=== PATIENT | female | born 1990 | race Caucasian/White ===

== ENCOUNTER → 2016-04-25 | Outpatient (CLI) | payer BC | LOC: RAD 12:47 | PROVIDERS: ATTEND Obstetrics & Gynecology | DX: N97.9 Female infertility, unspecified (principal) | CPT/HCPCS: 58340; 74740 ==

== ENCOUNTER 2016-09-05 19:47 | Emergency (ER) | payer BC, MEDICAID | END 2016-09-05 21:47 | disposition left against medical advice (07) | LOC: ER 19:47 | DX: Z53.21 Procedure and treatment not carried out due to patient leaving prior to being seen by health care provider (principal) ==

== ENCOUNTER → 2016-12-16 | Outpatient (CLI) | payer MEDICAID | LOC: OD 15:27 | PROVIDERS: ATTEND Advanced Practice Midwife | DX: N91.1 Secondary amenorrhea (principal) | CPT/HCPCS: 36415; 84702 ==

== ENCOUNTER → 2016-12-18 | Outpatient (CLI) | payer MEDICAID | LOC: LAB 15:29 | PROVIDERS: ATTEND Advanced Practice Midwife | DX: N91.1 Secondary amenorrhea (principal) | CPT/HCPCS: 36415; 84702 ==

== ENCOUNTER 2017-03-10 18:13 | Emergency (ER) | payer MEDICAID ==
--- NOTE | 2017-03-10 19:23 | ER Document Report ---
ED Medical Screen (RME) - General Chief Complaint: Palpitations Stated Complaint: ABDOMINAL PAIN Time Seen by Provider: 03/10/17 19:20 Notes: Patient says that about 2 PM today, she was sitting on her couch and suddenly felt her heart racing. She has never had this happen before. Has not felt badly or ill before today. Patient is 16 weeks with no problems with the . Has not had any nausea or vomiting or diarrhea. No UTI symptoms. No fever. No history of thyroid dysfunction. Patient's only medication is vitamin. TRAVEL OUTSIDE OF THE [place] IN LAST 30 DAYS: No - Related Data Allergies/Adverse Reactions: No Known Allergies Allergy (Verified 03/10/17 18:17) Past Medical History - Social History Chew tobacco use (# tins/day): No Frequency of alcohol use: None Drug Abuse: None Family history: DM - Past Medical History Cardiac Medical History: Reports: Hx Hypercholesterolemia Renal/ Medical History: Denies: Hx Peritoneal Dialysis Past Surgical History: Reports: Hx Section - x 1 - Immunizations Immunizations up to date: Yes Hx Diphtheria, Pertussis, Tetanus Vaccination: Yes Physical Exam - Vital signs Vitals: Temp Pulse Resp BP Pulse Ox 98.1 F 120 H 20 142/88 H 98 03/10/17 18:17 03/10/17 18:17 03/10/17 18:17 03/10/17 18:17 03/10/17 18:17 Course - Vital Signs Vital signs: Temp Pulse Resp BP Pulse Ox 98.1 F 120 H 20 142/88 H 98 03/10/17 18:17 03/10/17 18:17 03/10/17 18:17 03/10/17 18:17 03/10/17 18:17
[2017-03-10 19:48] LABS: ABSOLUTE EOSINOPHILS # (AUTO) 0.1 10^3/uL (0.0-0.6); ABSOLUTE LYMPHOCYTES (AUTO) 2.5 10^3/uL (0.5-4.7); ABSOLUTE MONOCYTES (AUTO) 0.5 10^3/uL (0.1-1.4); BASOPHILS % (AUTO) 0.5 % (0-2); EOSINOPHILS % (AUTO) 1.4 % (0-6); HEMATOCRIT 36.6 % (36.0-47.0); HEMOGLOBIN 12.6 g/dL (12.0-15.5); HGB HCT DIFFERENCE 1.2; LYMPHOCYTES % (AUTO) 24.5 % (13-45); MEAN CORPUSCULAR HEMOGLOBIN 30.2 pg (27.0-33.4); MEAN CORPUSCULAR HGB CONC 34.4 g/dL (32.0-36.0); MEAN CORPUSCULAR VOLUME 88 fl (80-97); MONOCYTES % (AUTO) 5.1 % (3-13); RED BLOOD COUNT 4.17 10^6/uL (3.72-5.28); RED CELL DISTRIBUTION WIDTH 12.9 % (11.5-14.0); SEGMENTED NEUTROPHILS % (AUTO) 68.5 % (42-78); WHITE BLOOD COUNT 10.1 10^3/uL (4.0-10.5)
[2017-03-10 19:54] LABS: APPEARANCE,URINE SLIGHTLY-CLOUDY; BILIRUBIN,URINE NEGATIVE (NEGATIVE); GLUCOSE, URINE NEGATIVE (NEGATIVE); KETONES,URINE 20 mg/dL (NEGATIVE); LEUKOCYTE ESTERASE,URINE NEGATIVE (NEGATIVE); NITRITE,URINE NEGATIVE (NEGATIVE); PROTEIN,URINE NEGATIVE (NEGATIVE); URINE SPECIFIC GRAVITY 1.009; UROBILINOGEN,URINE NEGATIVE mg/dL (<2.0)
[2017-03-10 20:05] LABS: URINE BARBITURATES SCREEN NEGATIVE; URINE METHADONE SCREEN NEGATIVE; URINE OPIATES LOW NEGATIVE; URINE PHENCYCLIDINE SCREEN NEGATIVE
[2017-03-10 20:14] LABS: ALANINE AMINOTRANSFERASE 23 U/L (9-52); ALBUMIN 4.2 g/dL (3.5-5.0); ALKALINE PHOSPHATASE 50 U/L (38-126); ANION GAP 14 (5-19); ASPARTATE AMINO TRANSFERASE 21 U/L (14-36); BILIRUBIN,DIRECT 0.3 mg/dL (0.0-0.4); BILIRUBIN,TOTAL 0.9 mg/dL (0.2-1.3); BLOOD UREA NITROGEN 9 mg/dL (7-20); CALCIUM 9.4 mg/dL (8.4-10.2); CARBON DIOXIDE 25 mmol/L (22-30); CHLORIDE 102 mmol/L (98-107); CREATININE RESULT 0.64 mg/dL (0.52-1.25); GLUCOSE 81 mg/dL (75-110); POTASSIUM 3.6 mmol/L (3.6-5.0); SODIUM 140.6 mmol/L (137-145); TOTAL PROTEIN 7.1 g/dL (6.3-8.2)
[2017-03-10] MEDS: NORMAL SALINE 1000 ML 1,000 ML IV PRN ×2 (20:21→20:38)
--- NOTE | 2017-03-10 20:42 | ER Document Report ---
ED General - General Chief Complaint: Palpitations Stated Complaint: ABDOMINAL PAIN Time Seen by Provider: 03/10/17 19:20 Mode of Arrival: Ambulatory Information source: Patient Notes: 26-year-old female who is 16 weeks presents with complaints of her heart racing. Patient notes she has had a history of palpitations but over the past 3-4 hours she is noted that her heart rate has been consistently high. She denies any fevers or chills she denies any chest pain shortness breath difficulty breathing or any other concerns TRAVEL OUTSIDE OF THE [place] IN LAST 30 DAYS: No - HPI Onset: Just prior to arrival Onset/Duration: Sudden Quality of pain: No pain Severity: Moderate Pain Level: Denies Associated symptoms: Other Exacerbated by: Denies Relieved by: Denies Similar symptoms previously: No Recently seen / treated by doctor: No - Related Data Allergies/Adverse Reactions: No Known Allergies Allergy (Verified 03/10/17 18:17) Past Medical History - Social History Smoking Status: Former Smoker Cigarette use (# per day): No Chew tobacco use (# tins/day): No Smoking Education Provided: No Frequency of alcohol use: None Drug Abuse: None Family History: Reviewed & Not Pertinent Patient has suicidal ideation: No Patient has homicidal ideation: No - Past Medical History Cardiac Medical History: Reports: Hx Hypercholesterolemia Renal/ Medical History: Denies: Hx Peritoneal Dialysis Past Surgical History: Reports: Hx Section - x 1 - Immunizations Immunizations up to date: Yes Hx Diphtheria, Pertussis, Tetanus Vaccination: Yes Review of Systems - Review of Systems Notes: REVIEW OF SYSTEMS: CONSTITUTIONAL : Denies fever, chills, or sweats. Denies recent illness. EENT: Denies eye, ear, throat, or mouth pain or symptoms. Denies nasal or sinus congestion or discharge. Denies throat, tongue, or mouth swelling or difficulty swallowing. CARDIOVASCULAR: Admits to heart racing RESPIRATORY: Denies cough, cold, or chest congestion. Denies shortness of breath, difficulty breathing, or wheezing. GASTROINTESTINAL: Denies abdominal pain or distention. Denies nausea, vomiting , or diarrhea. Denies blood in vomitus, stools, or per rectum. Denies black, tarry stools. Denies constipation. GENITOURINARY: Denies difficulty urinating, painful urination, burning, frequency, blood in urine, or discharge. FEMALE GENITOURINARY: Denies vaginal bleeding, heavy or abnormal periods, irregular periods. Denies vaginal discharge or odor. MUSCULOSKELETAL: Denies back or neck pain or stiffness. Denies joint pain or swelling. SKIN: Denies rash, lesions or sores. HEMATOLOGIC : Denies easy bruising or bleeding. LYMPHATIC: Denies swollen, enlarged glands. NEUROLOGICAL: Denies confusion or altered mental status. Denies passing out or loss of consciousness. Denies dizziness or lightheadedness. Denies headache. Denies weakness or paralysis or loss of use of either side. Denies problems with gait or speech. Denies sensory loss, numbness, or tingling. Denies seizures. PSYCHIATRIC: Denies anxiety or stress. Denies depression, suicidal ideation, or homicidal ideation. ALL OTHER SYSTEMS REVIEWED AND NEGATIVE. PHYSICAL EXAMINATION: GENERAL: Well-appearing, well-nourished and in no acute distress. HEAD: Atraumatic, normocephalic. EYES: Pupils equal round and reactive to light, extraocular movements intact, conjunctiva are normal. ENT: Nares patent, oropharynx clear without exudates. Moist mucous membranes. NECK: Normal range of motion, supple without lymphadenopathy LUNGS: Breath sounds clear to auscultation bilaterally and equal. No wheezes rales or rhonchi. HEART: Tachycardic ABDOMEN: Soft, nontender, nondistended abdomen. No guarding, no rebound. No masses appreciated. Female : deferred Musculoskeletal: Normal range of motion, no pitting or edema. No cyanosis. NEUROLOGICAL: Cranial nerves grossly intact. Normal speech, normal gait. Normal sensory, motor exams PSYCH: Normal mood, normal affect. SKIN: Warm, Dry, normal turgor, no rashes or lesions noted. Dictation was performed using [employer] voice recognition software Physical Exam - Vital signs Vitals: Temp Pulse Resp BP Pulse Ox 98.1 F 120 H 20 142/88 H 98 03/10/17 18:17 03/10/17 18:17 03/10/17 18:17 03/10/17 18:17 03/10/17 18:17 Course - Re-evaluation Re-evalutation: 03/10/17 20:42 Patient was immediately placed on monitor heart rate has been anywhere between 90s-110, her initial presenting heart rate was 120, she overall looks well has no specific complaints, I believe this may be secondary to dehydration and her , she denies any shortness breath no chest pain which would be concerning for a pulmonary emboli, patient was given IV fluids 03/10/17 23:29 Patient's heart rate did improve significantly after IV fluids, she looks well is in no distress. I will discharge at this time with close follow-up with her RN BSN. Patient has been told to return immediately if there are any other concerns she states she will do so After performing a Medical Screening Examination, I estimate there is LOW risk for RUPTURED ESOPHAGUS, PNEUMOTHORAX, PULMONARY EMBOLISM, ACUTE CORONARY SYNDROME, OR THORACIC AORTIC DISSECTION, thus I consider the discharge disposition reasonable. I have reevaluated this patient multiple times and no significant life threatening changes are noted. The patient and I have discussed the diagnosis and risks, and we agree with discharging home with close follow-up. We also discussed returning to the Emergency Department immediately if new or worsening symptoms occur. We have discussed the symptoms which are most concerning (e.g., bloody sputum, worsening pain or shortness of breath) that necessitate immediate return. - Vital Signs Vital signs: Temp Pulse Resp BP Pulse Ox 98.1 F 120 H 12 119/88 H 100 03/10/17 18:17 03/10/17 18:17 03/10/17 21:25 03/10/17 21:25 03/10/17 21:25 - Laboratory Result Diagrams: 03/10/17 19:28 03/10/17 19:28 Laboratory results interpreted by me: 03/10/17 19:28 Urine Ketones 20 H Urine Blood SMALL H Discharge - Discharge Clinical Impression: Sinus tachycardia, Dehydration Condition: Stable Disposition: HOME, SELF-CARE Instructions: Sinus Tachycardia ([facility]) Referrals: ANGELICA CHAVIRA MD [Primary Care Provider] - Follow up tomorrow
[2017-03-10 20:45] LABS: THYROID STIMULATING HORMONE 2.56 uIU/mL (0.47-4.68)
[2017-03-10 21:28] VITALS: BP 119/88
--- NOTE | 2017-03-11 14:07 | EKG REPORT ---
SEVERITY:- ABNORMAL ECG - SINUS TACHYCARDIA NONSPECIFIC T ABNORMALITIES, LATERAL LEADS : Confirmed by: Meme Nunez MD 11-Mar-2017 14:06:26
== END 2017-03-10 21:32 | disposition home or self-care (01) ==
LOC: ER 18:13
DX: R00.0 Tachycardia, unspecified (principal); E86.0 Dehydration; R10.9 Unspecified abdominal pain; Z3A.16 16 weeks gestation of pregnancy; Z87.891 Personal history of nicotine dependence
CPT/HCPCS: 93005; 99285; 96360; 36415; 84439; 84443; 85025; 80053; 81001; 80307; 93010; J7030

== ENCOUNTER 2017-07-05 10:37 | Outpatient (CLI) | payer MEDICAID ==
[2017-07-05 11:12] LABS: APPEARANCE,URINE CLOUDY; BILIRUBIN,URINE NEGATIVE (NEGATIVE); COLOR,URINE YELLOW; GLUCOSE, URINE NEGATIVE (NEGATIVE); KETONES,URINE 20 mg/dL (NEGATIVE); LEUKOCYTE ESTERASE,URINE TRACE (NEGATIVE); NITRITE,URINE NEGATIVE (NEGATIVE); PROTEIN,URINE 30 mg/dL (NEGATIVE); URINE SPECIFIC GRAVITY 1.018; UROBILINOGEN,URINE NEGATIVE mg/dL (<2.0)
[2017-07-05 11:27] LABS: URINE AMPHETAMINES SCREEN NEGATIVE; URINE BARBITURATES SCREEN NEGATIVE; URINE BENZODIAZEPINES SCREEN NEGATIVE; URINE COCAINE SCREEN NEGATIVE; URINE MARIJUANA (THC) SCREEN NEGATIVE; URINE METHADONE SCREEN NEGATIVE; URINE PHENCYCLIDINE SCREEN NEGATIVE
[2017-07-05] MEDS ORDERED: HYDROXYZINE PAMOATE 50 MG CAPSULE PO ONE (11:30)
[2017-07-05] MEDS ORDERED: HYDROXYZINE PAMOATE 50 MG CAPSULE ONE (11:34)
--- NOTE | 2017-07-05 12:53 | Non Stress Test Report ---
Non Stress Test Datetime Report Generated by CPN: 07/05/2017 12:53 DEMOGRAPHIC Test Number: 1 EGA NST: 32.6 INDICATION Indication for Study: Ordered by Provider VITAL SIGNS Temperature - NST: 98.3 MONITORING Monitor Explained: Monitor Explained; Test Explained; Patient Verbalized Understanding Time on Monitor: 07/05/2017 10:57 Time off Monitor: 07/05/2017 12:41 NST Duration: 104 NST INTERVENTIONS NST Interventions: PO Hydration Physician Notified NST: P. Holland, CNM BABY A: [id number] BABY A Movement : Present Contraction Frequency : Irregular FHR Baseline : 120 Accelerations : 15X15 Decelerations : None Variability : Moderate 6-25bpm NST Review: Meets Criteria for Reactive NST NST Review: Meets Criteria for Reactive NST NST Review and Verified By : KEEGAN Monroe Results: Reactive NST REPORT Report Trigger: Send Report
== END 2017-07-05 13:00 | disposition home or self-care (01) ==
LOC: LC 10:37
PROVIDERS: ATTEND Obstetrics & Gynecology Gynecology
PROC: 4A1HXCZ Monitoring of Products of Conception, Cardiac Rate, External Approach (ICD-10-PCS; principal; 2017-07-05)
DX: O47.03 False labor before 37 completed weeks of gestation, third trimester (principal); Z3A.32 32 weeks gestation of pregnancy; Z92.29 Personal history of other drug therapy
CPT/HCPCS: 59025; 81001; 80307; J3490

== ENCOUNTER 2017-07-28 16:11 | Outpatient (CLI) | payer MEDICAID ==
--- NOTE | 2017-07-28 16:50 | L&D Progress Notes ---
PROGRESS NOTES Datetime Report Generated by CPN: 07/28/2017 16:49 PROGRESS NOTE Comment: in at 36+1 for "high" blood pressure at doctor who gives her subutex. pt states it was not 140/90. denies MARIEE/visual changes/RUQ pain. warning signs discussed and pt discharged to home in stable condition SIGNATURE SIGNATURE: [id number] SIGNATURE: [id number] Assignment: Crissy Mccarty MD Signature: with User ID: [email or web address] : with User ID: [email or web address]
--- NOTE | 2017-07-28 16:54 | Non Stress Test Report ---
Non Stress Test Datetime Report Generated by CPN: 07/28/2017 16:53 DEMOGRAPHIC EGA NST: 36.1 INDICATION Indication for Study (NST) Other: LC MONITORING Monitor Explained: Monitor Explained; Test Explained; Patient Verbalized Understanding Time on Monitor: 07/28/2017 16:28 Time off Monitor: 07/28/2017 16:49 Time off Monitor: 07/28/2017 16:49 NST Duration: 21 NST INTERVENTIONS NST Interventions: None Physician Notified NST: A Riddle CNM BABY A: [id number] BABY A Movement : Present Contraction Frequency : irritability FHR Baseline : 135 Accelerations : 15X15 Decelerations : None Variability : Moderate 6-25bpm NST Review: Meets Criteria for Reactive NST NST Review and Verified By : Jessica Cherry RNC NST Results: Reactive NST REPORT Report Trigger: Send Report
== END 2017-07-28 16:56 | disposition home or self-care (01) ==
LOC: LC 16:11
PROVIDERS: ATTEND Obstetrics & Gynecology
PROC: 4A1HXCZ Monitoring of Products of Conception, Cardiac Rate, External Approach (ICD-10-PCS; principal; 2017-07-28)
DX: O16.3 Unspecified maternal hypertension, third trimester (principal); Z3A.36 36 weeks gestation of pregnancy
CPT/HCPCS: 59025

== ENCOUNTER 2017-08-17 06:20 | Inpatient (IN) | payer MEDICAID ==
[2017-08-16 10:56] LABS: ABSOLUTE EOSINOPHILS # (AUTO) 0.1 10^3/uL (0.0-0.6); ABSOLUTE LYMPHOCYTES (AUTO) 1.5 10^3/uL (0.5-4.7); ABSOLUTE MONOCYTES (AUTO) 0.4 10^3/uL (0.1-1.4); ABSOLUTE NEUT (AUTO) 5.5 10^3/uL (1.7-8.2); BASOPHILS % (AUTO) 0.3 % (0-2); HEMATOCRIT 36.9 % (36.0-47.0); HEMOGLOBIN 12.6 g/dL (12.0-15.5); LYMPHOCYTES % (AUTO) 19.5 % (13-45); MEAN CORPUSCULAR HEMOGLOBIN 31.5 pg (27.0-33.4); MEAN CORPUSCULAR HGB CONC 34.1 g/dL (32.0-36.0); MEAN CORPUSCULAR VOLUME 92 fl (80-97); MONOCYTES % (AUTO) 5.2 % (3-13); PLATELET COUNT 144 10^3/uL (150-450); RED CELL DISTRIBUTION WIDTH 13.3 % (11.5-14.0); TOTAL CELLS COUNTED % (AUTO) 100 %; WHITE BLOOD COUNT 7.5 10^3/uL (4.0-10.5)
[2017-08-16 11:01] LABS: APPEARANCE,URINE CLOUDY; BILIRUBIN,URINE NEGATIVE (NEGATIVE); COLOR,URINE YELLOW; GLUCOSE, URINE NEGATIVE (NEGATIVE); KETONES,URINE NEGATIVE (NEGATIVE); LEUKOCYTE ESTERASE,URINE NEGATIVE (NEGATIVE); NITRITE,URINE NEGATIVE (NEGATIVE); PROTEIN,URINE NEGATIVE (NEGATIVE); URINE SPECIFIC GRAVITY 1.008; UROBILINOGEN,URINE NEGATIVE mg/dL (<2.0)
[2017-08-16 11:11] LABS: URINE AMPHETAMINES SCREEN NEGATIVE; URINE BARBITURATES SCREEN NEGATIVE; URINE BENZODIAZEPINES SCREEN NEGATIVE; URINE COCAINE SCREEN NEGATIVE; URINE MARIJUANA (THC) SCREEN NEGATIVE; URINE METHADONE SCREEN NEGATIVE; URINE PHENCYCLIDINE SCREEN NEGATIVE
[~2017-08-17 06:20] MED LIST: AZITHROMYCIN 500 MG in DEXTROSE 5%-WATER 250 ML IV PRN; CEFAZOLIN 1 GM/D5W RTU 1 GM/50 ML RTUPB IV PRN
[2017-08-17] MEDS ORDERED: MEPERIDINE HCL/PF INJ 25 MG/1 ML DISP.SYRIN IV PRN ×2 (09:01→12:34)
[2017-08-17] MEDS ORDERED: FENTANYL CITRATE INJ/PF 100 MCG/2 ML AMPUL IV PRN ×6 (09:01→12:34)
[2017-08-17] MEDS ORDERED: PROMETHAZINE HCL INJ 25 MG/1 ML VIAL IV PRN ×4 (09:01→12:34)
[2017-08-17] MEDS ORDERED: MORPHINE SULFATE 10 MG/ML INJ IV PRN ×2 (09:01→12:34)
[2017-08-17] MEDS ORDERED: ONDANSETRON HCL INJ/PF 4 MG/2 ML SDV IV PRN (09:01)
[2017-08-17] MEDS ORDERED: DIPHENHYDRAMINE HCL 50 MG/ML VIAL IV PRN ×2 (09:01→12:34)
[2017-08-17] MEDS ORDERED: FENTANYL CITRATE INJ/PF 100 MCG/2 ML AMPUL ONE (09:17)
[2017-08-17] MEDS ORDERED: OXYTOCIN 10 UNIT/ML VIAL ONE (09:17)
[2017-08-17] MEDS ORDERED: MIDAZOLAM 2 MG/2 ML INJ ONE (09:18)
[2017-08-17] MEDS ORDERED: OXYTOCIN/NORMAL SALINE 20 UNIT/1,000 ML RTUINJ ONE (09:18)
[2017-08-17] MEDS ORDERED: TETRACAINE HCL/PF 20MG/2ML AMPULE (SPINAL) ONE (09:18)
[2017-08-17] MEDS ORDERED: EPHEDRINE SULFATE INJ 50 MG/1 ML AMPULE ONE (09:18)
[2017-08-17] MEDS ORDERED: ACETAMINOPHEN 100 ML IV ONE (09:18)
[2017-08-17] MEDS ORDERED: KETAMINE HCL INJ 500 MG/10 ML VIAL ONE (10:12)
--- NOTE | 2017-08-17 10:54 | OPERATIVE REPORT E ---
Operative Report NAME: JAVI LÓPEZ : 1990 AGE: 27Y DATE OF SURGERY: 08/17/2017 ROOM: 217 PREOPERATIVE DIAGNOSIS: IUP at term with prior section. POSTOPERATIVE DIAGNOSIS: IUP at term with prior section. PROCEDURE: Low-transverse C section with delivery of a viable male, Apgars of 9 and 9, weighing 8 pounds. SURGEON: Maylin GASPAR M.D. ESTIMATED BLOOD LOSS: Less than 600 mL. TISSUE REMOVED: Placenta. ANESTHESIA: Spinal DESCRIPTION OF PROCEDURE: The patient was placed in a supine position, prepped and draped in a sterile fashion with a roll placed on her right side. A Pfannenstiel incision was made through the existing Pfannenstiel scar and incision extended through the subcutaneous tissue by sharp dissection. The fascia was sharply divided. Rectus muscles bluntly and sharply divided. Parietal peritoneum was entered with sharp dissection. The uterus was nicked in the midline and extended bilaterally. The was then delivered through the uterine and abdominal incision. Nose and mouth suctioned with a bulb syringe. Cord was clamped and the was passed from the table. The placenta was manually extracted. The uterus was closed in 2 layers using 0 Vicryl first in a running stitch and the second a Lembert stitch imbricating the first layer. There was bleeding noted in the mid portion at the left and it was and controlled with [id number] suture of 0 Vicryl. Hemostasis was noted. Fascia was closed with 0 Vicryl, skin was closed with subcutaneous absorbable jovanni. Her urine remained clear throughout the procedure. She was taken to the recovery room in good condition, the to nursery in good condition. DICTATING PHYSICIAN: Maylin GASPAR M.D. [id number] PHY#: [id number] ID: [id number] JOB#: [id number] ACCT: [id number] cc:Maylin GASPAR M.D. >
[2017-08-17] MEDS: MEPERIDINE HCL/PF INJ 25 MG/1 ML DISP.SYRIN ONE ×2 (11:34→11:39)
[2017-08-17] MEDS ORDERED: LIDOCAINE 2% INJ-PF (20 MG/ML) 2 ML AMPUL ONE (11:35)
[2017-08-17] MEDS ORDERED: METOCLOPRAMIDE HCL INJ/PF 10 MG/2 ML SDV ONE (11:35)
[2017-08-17] MEDS ORDERED: KETOROLAC TROMETHAMINE 60 MG/2 ML SDV ONE (11:35)
[2017-08-17] MEDS ORDERED: ONDANSETRON HCL INJ/PF 4 MG/2 ML SDV ONE (11:35)
[2017-08-17] MEDS ORDERED: DEXAMETHASONE SOD PHOSPHATE INJ 4 MG/1 ML VIAL ONE (11:35)
[2017-08-17] MEDS: FENTANYL CITRATE INJ/PF 100 MCG/2 ML AMPUL ONE ×2 (11:54→12:04)
[2017-08-17] MEDS ORDERED: OXYCODONE-ACETAMINOPHEN 5-325 MG TABLET PO PRN ×3 (12:34→13:30)
[2017-08-17] MEDS ORDERED: OXYTOCIN/NORMAL SALINE 20 UNIT/1,000 ML RTUINJ INJ PRN (13:09)
[2017-08-17] MEDS ORDERED: RINGERS SOLUTION,LACTATED 1,000 ML IV SCH (13:30)
[2017-08-17] MEDS ORDERED: PROMETHAZINE HCL INJ 25 MG/1 ML VIAL IM PRN (13:30)
[2017-08-17] MEDS ORDERED: MORPHINE SULFATE 10 MG/ML INJ IM PRN (13:30)
[2017-08-17] MEDS ORDERED: MEASLES,MUMPS&RUBELLA VACC/PF 0.5 ML VIAL SUBCUT PRN (13:30)
[2017-08-17] MEDS ORDERED: DIPH/PERTUSS(ACELL)/TETANUS VAC/PF 0.5 ML SYR (>=10YO) IM PRN (13:30)
[2017-08-17] MEDS ORDERED: ACETAMINOPHEN 325 MG TABLET PO PRN (13:30)
[2017-08-17] MEDS ORDERED: OXYCODONE-ACETAMINOPHEN 5-325 MG TABLET ONE (13:49)
[2017-08-17] MEDS: DOCUSATE SODIUM 100 MG CAPSULE PO SCH (17:17)
[2017-08-17] MEDS: IBUPROFEN 800 MG TABLET PO SCH (17:17)
[2017-08-17] MEDS: OXYCODONE-ACETAMINOPHEN 5-325 MG TABLET PO PRN (18:03)
[2017-08-17] MEDS: SIMETHICONE 80 MG TAB.CHEW PO PRN (18:57)
[2017-08-17 22:56] LABS: MEAN CORPUSCULAR HEMOGLOBIN 31.3 pg (27.0-33.4); MEAN CORPUSCULAR HGB CONC 34.3 g/dL (32.0-36.0); MEAN CORPUSCULAR VOLUME 91 fl (80-97); PLATELET COUNT 143 10^3/uL (150-450); RED BLOOD COUNT 2.41 10^6/uL (3.72-5.28); RED CELL DISTRIBUTION WIDTH 13.3 % (11.5-14.0)
[2017-08-17 23:00] LABS: WHITE BLOOD COUNT 16.4 10^3/uL (4.0-10.5)
[2017-08-17 23:01] LABS: HEMOGLOBIN 7.5 g/dL (12.0-15.5)
[2017-08-18] MEDS: IBUPROFEN 800 MG TABLET PO SCH ×4 (06:08→18:24)
[2017-08-18 07:17] LABS: HEMATOCRIT 23.7 % (36.0-47.0); HEMOGLOBIN 8.3 g/dL (12.0-15.5); MEAN CORPUSCULAR HEMOGLOBIN 31.6 pg (27.0-33.4); MEAN CORPUSCULAR HGB CONC 34.9 g/dL (32.0-36.0); MEAN CORPUSCULAR VOLUME 91 fl (80-97); PLATELET COUNT 180 10^3/uL (150-450); RED BLOOD COUNT 2.61 10^6/uL (3.72-5.28); RED CELL DISTRIBUTION WIDTH 13.3 % (11.5-14.0); WHITE BLOOD COUNT 22.1 10^3/uL (4.0-10.5)
[2017-08-18] MEDS: OXYCODONE-ACETAMINOPHEN 5-325 MG TABLET PO PRN ×2 (07:40→18:25)
[2017-08-18] MEDS: PRENATAL VITAMIN W DHA CAPSULE PO SCH (09:29)
[2017-08-18] MEDS: DOCUSATE SODIUM 100 MG CAPSULE PO SCH ×2 (09:31→18:24)
--- NOTE | 2017-08-18 09:43 | PDOC PROGRESS REPORT ---
Subjective-OB Progress Note for:: 08/18/17 Subjective: Day #1 s/p R c/s Pt doing well, up ambulating, lochia is stable, pain well controlled, voiding without difficulty, passing gas. Physical Exam (OB) Vital Signs: Temp Pulse Resp BP Pulse Ox 98.5 F 110 H 20 110/69 100 08/18/17 07:32 08/18/17 07:32 08/18/17 07:32 08/18/17 07:32 08/18/17 07:32 Intake & Output 08/17/17 08/18/17 08/19/17 06:59 06:59 06:59 Intake Total 2650 Output Total 1850 Balance 800 Weight 69.85 kg - Incision: Dressing - Lochia Lochia Amount: Small 10-25 ml Lochia Color: Rubra/Red - Abdomen Description: Soft Hernia Present: No Fundal Description: Firm, Midline Fundal Height: u/u - u/2 Objective-Diagnostic Laboratory: 08/18/17 06:26 08/17/17 08/17/17 08/18/17 20:25 22:46 06:26 WBC Cancelled 16.4 H D 22.1 H RBC Cancelled 2.41 L 2.61 L Hgb Cancelled 7.5 L D 8.3 L Hct Cancelled 22.0 L 23.7 L MCV Cancelled 91 91 MCH Cancelled 31.3 31.6 MCHC Cancelled 34.3 34.9 RDW Cancelled 13.3 13.3 Plt Count Cancelled 143 L 180 Blood Type 08/18/17 06:26 WBC RBC Hgb Hct MCV MCH MCHC RDW Plt Count Blood Type A NEGATIVE Assessment and Plan(PN) - Assessment and Plan (1) S/P repeat low transverse Is this a current diagnosis for this admission?: Yes Plan: routine pp care (2) Acute blood loss anemia Is this a current diagnosis for this admission?: Yes Plan: ferrous sulfate increase dietary iron - Time Spent with Patient Time with patient: Less than 15 minutes Critical Time spent with patient: Less than 15 minutes Medications reviewed and adjusted accordingly: Yes - Disposition Anticipated Discharge: Home, SNF
[2017-08-19] MEDS: IBUPROFEN 800 MG TABLET PO SCH ×3 (00:23→11:20)
[2017-08-19] MEDS: SIMETHICONE 80 MG TAB.CHEW PO PRN (00:24)
[2017-08-19] MEDS: DOCUSATE SODIUM 100 MG CAPSULE PO SCH (09:21)
[2017-08-19] MEDS: PRENATAL VITAMIN W DHA CAPSULE PO SCH (09:21)
--- NOTE | 2017-08-19 11:13 | PDOC DISCHARGE SUMMARY ---
Final Diagnosis Discharge Date: 08/19/17 - Final Diagnosis (1) S/P repeat low transverse Is this a current diagnosis for this admission?: Yes (2) Acute blood loss anemia Is this a current diagnosis for this admission?: Yes Discharge Data - Discharge Medication Prescriptions: Oxycodone HCl/Acetaminophen [Percocet 5-325 mg Tablet] 1 tab PO Q4HP PRN #30 tablet PRN Reason: Docusate Sodium [Colace 100 mg Capsule] 100 mg PO BID #60 capsule Ferrous Sulfate 325 mg PO BID 30 Days #60 tablet Ibuprofen [Motrin 800 mg Tablet] 800 mg PO Q6 #60 tablet Home Medications: Pnv W-O Ca No5/Fe Fumarate/FA [-U Multiple Vitamin Capsule] 1 cap PO DAILY 09/01/12 Docusate Sodium [Colace 100 mg Capsule] 100 mg PO BID #60 capsule 08/19/17 Ferrous Sulfate 325 mg PO BID 30 Days #60 tablet 08/19/17 Ibuprofen [Motrin 800 mg Tablet] 800 mg PO Q6 #60 tablet 08/19/17 Oxycodone HCl/Acetaminophen [Percocet 5-325 mg Tablet] 1 tab PO Q4HP PRN #30 tablet 08/19/17 Gestational Age: 39 Reason(s) for Admission: Ceasarean Section-Repeat Procedures: NST Intrapartum Procedure(s): : Low Cervical, Transverse - [employer] Data Baby 1 Male at 1 minute: 9 at 5 minutes: 9 Weight: 3.629 kg Home with Mother: Yes Complications: No - Diagnosis Test Laboratory: Temp Pulse Resp BP Pulse Ox 98.1 F 112 H 17 107/68 99 08/19/17 07:21 08/19/17 07:21 08/19/17 07:21 08/19/17 07:21 08/19/17 07:21 08/16/17 08/16/17 08/17/17 09:30 09:35 20:25 RBC 4.00 Cancelled Hgb 12.6 Cancelled Hct 36.9 Cancelled Urine Opiates Screen NEGATIVE 08/17/17 08/18/17 22:46 06:26 RBC 2.41 L 2.61 L Hgb 7.5 L D 8.3 L Hct 22.0 L 23.7 L Urine Opiates Screen - Discharge information/Instructions Discharge Activity: Activity As Tolerated, No Lifting Over 10 Pounds, Pelvic Rest, No tub bath Discharge Diet: Regular Disposition: HOME, SELF-CARE Follow up with: [facility] in: 1, Weeks
[2017-08-19 12:26] VITALS: BP 126/76
--- NOTE | 2017-08-19 14:10 | PDOC PROGRESS REPORT ---
Subjective-OB Progress Note for:: 08/19/17 Subjective: day #2 s/p r c/s Doing well, passing gas, tolerating diet, voiding without difficulty, lochia is stable, pain well controlled, would like to be d/c home if baby can be discharged. Physical Exam (OB) Vital Signs: Temp Pulse Resp BP Pulse Ox 98.1 F 116 H 16 126/76 H 100 08/19/17 11:43 08/19/17 11:43 08/19/17 11:43 08/19/17 11:43 08/19/17 11:43 Intake & Output 08/18/17 08/19/17 08/20/17 06:59 06:59 06:59 Intake Total 2650 780 Output Total 1850 400 Balance 800 -400 780 Baby 1 Male 3.629 kg - Dressing Removed: Yes Incision: Well Approximated Closure Type: Sutures - Lochia Lochia Amount: Scant < 10 ml Lochia Color: Rubra/Red - Abdomen Description: Tender, Soft, Round Hernia Present: No Fundal Description: Firm, Midline Fundal Height: u/u - u/2 Objective-Diagnostic Laboratory: 08/18/17 06:26 08/18/17 06:26 Blood Type A NEGATIVE Assessment and Plan(PN) - Assessment and Plan (1) S/P repeat low transverse Is this a current diagnosis for this admission?: Yes Plan: routine pp care d/c home if baby is discharged or if pt desires may cancel d/c if not (2) Acute blood loss anemia Is this a current diagnosis for this admission?: Yes Plan: ferrous sulfate increase dietary iron - Time Spent with Patient Time with patient: Less than 15 minutes Critical Time spent with patient: Less than 15 minutes Medications reviewed and adjusted accordingly: Yes - Disposition Anticipated Discharge: Home Within: within 24 hours
== END 2017-08-19 15:57 | disposition home or self-care (01) | DRG 765 ==
LOC: 2S 06:20
PROVIDERS: ADMIT Obstetrics & Gynecology Gynecology; ATTEND Obstetrics & Gynecology Gynecology
PROC: 3E0234Z Introduction of Serum, Toxoid and Vaccine into Muscle, Percutaneous Approach (ICD-10-PCS; 2017-08-17)
PROC: 10D00Z1 Extraction of Products of Conception, Low, Open Approach (ICD-10-PCS; principal; 2017-08-17 09:15)
DX: O34.211 Maternal care for low transverse scar from previous cesarean delivery (principal); O36.0930 Maternal care for other rhesus isoimmunization, third trimester, not applicable or unspecified; D62 Acute posthemorrhagic anemia; N85.8 Other specified noninflammatory disorders of uterus; O99.02 Anemia complicating childbirth; Z3A.39 39 weeks gestation of pregnancy; Z37.0 Single live birth
CPT/HCPCS: 1961; 36415; 59025; 80307; 81001; 85025; 85027; 85461; 86850; 86870; 86900; 86901; 94799; J0131; J0456; J1100; J1885; J2175; J2250; J2270; J2405; J2590; J2765; J2790; J3010; J3490; J7060

== ENCOUNTER → 2018-03-02 | Outpatient (CLI) | payer MEDICAID ==
[2018-03-02 13:26] LABS: HEMATOCRIT 37.5 % (36.0-47.0); HEMOGLOBIN 13.1 g/dL (12.0-15.5); MEAN CORPUSCULAR HEMOGLOBIN 30.2 pg (27.0-33.4); MEAN CORPUSCULAR HGB CONC 34.8 g/dL (32.0-36.0); MEAN CORPUSCULAR VOLUME 87 fl (80-97); PLATELET COUNT 226 10^3/uL (150-450); RED BLOOD COUNT 4.32 10^6/uL (3.72-5.28); RED CELL DISTRIBUTION WIDTH 12.5 % (11.5-14.0); WHITE BLOOD COUNT 5.4 10^3/uL (4.0-10.5)
[2018-03-02 13:49] LABS: ALANINE AMINOTRANSFERASE 22 U/L (9-52); ALBUMIN 4.3 g/dL (3.5-5.0); ALKALINE PHOSPHATASE 64 U/L (38-126); ANION GAP 11 (5-19); ASPARTATE AMINO TRANSFERASE 29 U/L (14-36); BILIRUBIN,DIRECT 0.1 mg/dL (0.0-0.4); BILIRUBIN,TOTAL 0.7 mg/dL (0.2-1.3); BLOOD UREA NITROGEN 11 mg/dL (7-20); CALCIUM 9.7 mg/dL (8.4-10.2); CARBON DIOXIDE 31 mmol/L (22-30); CHLORIDE 100 mmol/L (98-107); GLUCOSE 89 mg/dL (75-110); POTASSIUM 4.5 mmol/L (3.6-5.0); SODIUM 141.9 mmol/L (137-145); TOTAL PROTEIN 7.5 g/dL (6.3-8.2)
[2018-03-03 06:38] LABS: HEPATITIS A AB IGM Negative (Negative); HEPATITIS B CORE AB IGM Negative (Negative); HEPATITS B SURFACE ANTIGEN Negative (Negative)
[2018-03-03 09:38] LABS: HEPATITIS C VIRUS ANTIBODY <0.1 s/co ratio (0.0-0.9)
== END ==
LOC: OD 12:11
PROVIDERS: ATTEND Specialist
DX: N28.9 Disorder of kidney and ureter, unspecified (principal); I10 Essential (primary) hypertension; Z79.899 Other long term (current) drug therapy
CPT/HCPCS: 36415; 80048; 80074; 80076; 85027

== ENCOUNTER 2018-08-23 00:44 | Emergency (ER) | payer MEDICAID | END 2018-08-23 00:58 | disposition left against medical advice (07) | LOC: ER 00:44 | DX: Z53.21 Procedure and treatment not carried out due to patient leaving prior to being seen by health care provider (principal) ==

== ENCOUNTER 2018-08-31 13:19 | Emergency (ER) | payer MEDICAID ==
[2018-08-31 13:35] VITALS: BP 142/91
--- NOTE | 2018-08-31 13:43 | ER Document Report ---
ED Medical Screen (RME) - General Chief Complaint: Chest Pain Stated Complaint: PALPITATIONS Time Seen by Provider: 08/31/18 13:41 Primary Care Provider: RUPESH RICO MD [Primary Care Provider] - Follow up as needed Mode of Arrival: Ambulatory Information source: Patient Notes: 28-year-old female presented to ED for complaint of racing heart/palpitations/chest pain for 2 days. She states that it is mostly at nighttime she wakes up with her heart pounding out of her chest. She states it wakes her up and then she thinks about and cannot go back to sleep. She states when this happens she has pain in her chest. She states she did have history of panic attacks when she was in high school but has not had any recently until 2 days ago. She states these others may be anxiety from the first panic attack. She does not have any medical history except for high cholesterol and the panic attacks. She does not smoke drink or drugs. She is a student and lives with her significant other. States she has very irregular menstrual cycles and sometimes takes control sometimes not. I have greeted and performed a rapid initial assessment of this patient. A comprehensive ED assessment and evaluation of the patient, analysis of test results and completion of medical decision making process will be conducted by an additional ED providers. Dictation of this chart was performed using voice recognition software; therefore, there may be some unintended grammatical errors. TRAVEL OUTSIDE OF THE [place] IN LAST 30 DAYS: No - Related Data Allergies/Adverse Reactions: No Known Allergies Allergy (Verified 08/31/18 13:20) Past Medical History - Social History Chew tobacco use (# tins/day): No Frequency of alcohol use: None Drug Abuse: None Family history: DM - Past Medical History Cardiac Medical History: Reports: Hx Hypercholesterolemia Renal/ Medical History: Denies: Hx Peritoneal Dialysis Psychiatric Medical History: Reports: Hx Depression - anxiety Past Surgical History: Reports: Hx Section - x 1 - Immunizations Immunizations up to date: Yes Hx Diphtheria, Pertussis, Tetanus Vaccination: Yes Physical Exam - Vital signs Vitals: Temp Pulse Resp BP Pulse Ox 97.7 F 86 16 142/91 H 97 08/31/18 13:34 08/31/18 13:34 08/31/18 13:34 08/31/18 13:34 08/31/18 13:34 Course - Vital Signs Vital signs: Temp Pulse Resp BP Pulse Ox 97.7 F 86 16 142/91 H 97 08/31/18 13:34 08/31/18 13:34 08/31/18 13:34 08/31/18 13:34 08/31/18 13:34 Doctor's Discharge - Discharge Referrals: RUPESH RICO MD [Primary Care Provider] - Follow up as needed
[2018-08-31 14:02] LABS: ABSOLUTE EOSINOPHILS # (AUTO) 0.3 10^3/uL (0.0-0.6); ABSOLUTE LYMPHOCYTES (AUTO) 1.6 10^3/uL (0.5-4.7); ABSOLUTE MONOCYTES (AUTO) 0.4 10^3/uL (0.1-1.4); ABSOLUTE NEUT (AUTO) 3.1 10^3/uL (1.7-8.2); BASOPHILS % (AUTO) 0.9 % (0-2); EOSINOPHILS % (AUTO) 5.9 % (0-6); HEMATOCRIT 39.4 % (36.0-47.0); HEMOGLOBIN 13.1 g/dL (12.0-15.5); LYMPHOCYTES % (AUTO) 29.2 % (13-45); MEAN CORPUSCULAR HEMOGLOBIN 28.8 pg (27.0-33.4); MEAN CORPUSCULAR HGB CONC 33.3 g/dL (32.0-36.0); MEAN CORPUSCULAR VOLUME 87 fl (80-97); MONOCYTES % (AUTO) 7.1 % (3-13); PLATELET COUNT 202 10^3/uL (150-450); RED BLOOD COUNT 4.56 10^6/uL (3.72-5.28); RED CELL DISTRIBUTION WIDTH 14.2 % (11.5-14.0); SEGMENTED NEUTROPHILS % (AUTO) 56.9 % (42-78); TOTAL CELLS COUNTED % (AUTO) 100 %; WHITE BLOOD COUNT 5.5 10^3/uL (4.0-10.5)
[2018-08-31 14:08] LABS: APPEARANCE,URINE CLOUDY; BILIRUBIN,URINE NEGATIVE (NEGATIVE); COLOR,URINE YELLOW; GLUCOSE, URINE NEGATIVE (NEGATIVE); KETONES,URINE NEGATIVE (NEGATIVE); LEUKOCYTE ESTERASE,URINE NEGATIVE (NEGATIVE); NITRITE,URINE NEGATIVE (NEGATIVE); PROTEIN,URINE NEGATIVE (NEGATIVE); URINE SPECIFIC GRAVITY 1.014; UROBILINOGEN,URINE NEGATIVE mg/dL (<2.0)
--- NOTE | 2018-08-31 14:09 | RADIOLOGY REPORT (SQ) ---
EXAM DESCRIPTION: CHEST 2 VIEWS COMPLETED DATE/TIME: 08/31/2018 1:57 pm REASON FOR STUDY: palpitations and chest pain interm 2 days COMPARISON: None. EXAM PARAMETERS: NUMBER OF VIEWS: two views TECHNIQUE: Digital Frontal and Lateral radiographic views of the chest acquired. RADIATION DOSE: NA LIMITATIONS: none FINDINGS: LUNGS AND PLEURA: No opacities, masses or pneumothorax. No pleural effusion. MEDIASTINUM AND HILAR STRUCTURES: No masses or contour abnormalities. HEART AND VASCULAR STRUCTURES: Heart normal size. No evidence for failure. BONES: Dextroconvex lateral curvature with a rotatory component, centered at the T9 level. No acute findings. HARDWARE: None in the chest. OTHER: No other significant finding. IMPRESSION: NO ACUTE RADIOGRAPHIC FINDING IN THE CHEST. TECHNICAL DOCUMENTATION: JOB ID: [id number] [employer]- All Rights Reserved Reading location - IP/workstation name: [email or web address]
[2018-08-31 14:25] LABS: URINE AMPHETAMINES SCREEN NEGATIVE; URINE BARBITURATES SCREEN NEGATIVE; URINE BENZODIAZEPINES SCREEN NEGATIVE; URINE COCAINE SCREEN NEGATIVE; URINE MARIJUANA (THC) SCREEN NEGATIVE; URINE METHADONE SCREEN NEGATIVE; URINE PHENCYCLIDINE SCREEN NEGATIVE
[2018-08-31 14:58] LABS: ALANINE AMINOTRANSFERASE 29 U/L (9-52); ALBUMIN 4.4 g/dL (3.5-5.0); ALKALINE PHOSPHATASE 61 U/L (38-126); ANION GAP 9 (5-19); ASPARTATE AMINO TRANSFERASE 26 U/L (14-36); BILIRUBIN,DIRECT 0.2 mg/dL (0.0-0.4); BILIRUBIN,TOTAL 1.1 mg/dL (0.2-1.3); BLOOD UREA NITROGEN 11 mg/dL (7-20); CALCIUM 9.8 mg/dL (8.4-10.2); CARBON DIOXIDE 29 mmol/L (22-30); CHLORIDE 102 mmol/L (98-107); GLUCOSE 93 mg/dL (75-110); LIPASE 77.6 U/L (23-300); SODIUM 140.2 mmol/L (137-145); TOTAL PROTEIN 7.4 g/dL (6.3-8.2)
--- NOTE | 2018-08-31 16:27 | EKG REPORT ---
SEVERITY:- BORDERLINE ECG - SINUS RHYTHM NONSPECIFIC ST-T CHANGES- INFERIOR LEADS : Confirmed by: Rufino Estrella MD 31-Aug-2018 16:27:12
--- NOTE | 2018-08-31 17:00 | ER Document Report ---
ED General - General Chief Complaint: Chest Pain Stated Complaint: PALPITATIONS Time Seen by Provider: 08/31/18 13:41 Primary Care Provider: RUPESH RICO MD [Primary Care Provider] - Follow up as needed Mode of Arrival: Ambulatory Notes: 28-year-old female presented to ED for complaint of racing heart/palpitations/chest pain for 2 days. She states that it is mostly at nighttime she wakes up with her heart pounding out of her chest. She states it wakes her up and then she thinks about and cannot go back to sleep. She states when this happens she has pain in her chest. She states she did have history of panic attacks when she was in high school but has not had any recently until 2 days ago. She states these others may be anxiety from the first panic attack. She does not have any medical history except for high cholesterol and the panic attacks. She does not smoke drink or drugs. She is a student and lives with her significant other. States she has very irregular menstrual cycles and sometimes takes control sometimes not. TRAVEL OUTSIDE OF THE [place] IN LAST 30 DAYS: No - Related Data Allergies/Adverse Reactions: No Known Allergies Allergy (Verified 08/31/18 13:20) Past Medical History - General Information source: Patient - Social History Smoking Status: Former Smoker Chew tobacco use (# tins/day): No Frequency of alcohol use: None Drug Abuse: None Family History: Reviewed & Not Pertinent Patient has suicidal ideation: No Patient has homicidal ideation: No - Past Medical History Cardiac Medical History: Reports: Hx Hypercholesterolemia Renal/ Medical History: Denies: Hx Peritoneal Dialysis Psychiatric Medical History: Reports: Hx Depression - anxiety Past Surgical History: Reports: Hx Section - x 1 - Immunizations Immunizations up to date: Yes Hx Diphtheria, Pertussis, Tetanus Vaccination: Yes Review of Systems - Review of Systems Constitutional: denies: Chills, Fever Cardiovascular: Palpitations, Heart racing. denies: Dizziness, Lightheaded Respiratory: Short of breath. denies: Hemoptysis, Wheezing Neurological/Psychological: Anxiety -: Yes All other systems reviewed and negative Physical Exam - Vital signs Vitals: Temp Pulse Resp BP Pulse Ox 97.7 F 86 16 142/91 H 97 08/31/18 13:34 08/31/18 13:34 08/31/18 13:34 08/31/18 13:34 08/31/18 13:34 - Notes Notes: GENERAL_APPEARANCE: well_nourished, alert, cooperative, no_acute_distress, no_obvious_discomfort. VITALS: reviewed, see vital signs table. HEAD: no_swelling\tenderness on the head. EYES: PERRL, EOMI, conjunctiva_clear. NOSE: no_nasal_discharge. MOUTH: (-)decreased moisture. THROAT: no_tonsilar_inflammation, no_airway_obstruction. no_lymphadenopathy NECK: supple, no_neck_tenderness, (-)thyromegaly. BACK: no_back_tenderness. CHEST_WALL: no_chest_tenderness. LUNGS: no_wheezing, no_rales, no_rhonchi, (-)accessory muscle use, good air exchange bilateral. HEART: normal_rate, normal_rhythm, normal_S1, normal_S2, (-)S3, (-)S4, no_murmur, no_rub. ABDOMEN: normal_BS, soft, no_abd_tenderness, (-)guarding, (-)rebound, no_organomegaly, no_abd_masses. EXTREMITIES: good pulses in all_extremities, no_swelling\tenderness in the extremities, no_edema. SKIN: warm, dry, good_color, no_rash. MENTAL_STATUS: speech_clear, oriented_X_3, anxious _affect, resp onds_appropriately to questions. PSYCH: Patient denies suicidal homicidal thoughts denies visual auditory hallucinations has a history of panic attacks and anxiety has been feeling anxious as of late Course - Re-evaluation Re-evalutation: 08/31/18 16:58 28-year-old female comes in complaining of palpitations and anxiety. Work-up here is very reassuring. EKG shows no arrhythmias. Spoke with the patient at length when the labs came back was then go back and reevaluate her. But she had a low. Suspicion is low for pulmonary embolism. Perk neg 08/31/18 16:58 The patient has eloped before I can reevaluate her. All her work-up has been reassuring. - Vital Signs Vital signs: Temp Pulse Resp BP Pulse Ox 97.7 F 86 16 142/91 H 97 08/31/18 13:34 08/31/18 13:34 08/31/18 13:34 08/31/18 13:34 08/31/18 13:34 - Laboratory Result Diagrams: 08/31/18 13:48 08/31/18 13:48 Laboratory results interpreted by me: 08/31/18 08/31/18 13:48 13:48 RDW 14.2 H Urine Blood SMALL H - Diagnostic Test Radiology reviewed: Reports reviewed Radiology results interpreted by me: 08/31/18 16:59 Chest X-Ray 08/31/18 13:41 IMPRESSION: NO ACUTE RADIOGRAPHIC FINDING IN THE CHEST. - EKG Interpretation by Me EKG shows normal: Sinus rhythm Rate: Normal Rhythm: NSR Discharge - Discharge Clinical Impression: Palpitations Condition: Good Disposition: HOME, SELF-CARE Instructions: Palpitations (Irregular or Rapid Heartrate) ([facility]) Additional Instructions: Please follow-up with your family doctor for further care you may also need to see psychiatry for worsening anxiety Referrals: RUPESH RICO MD [Primary Care Provider] - Follow up as needed
== END 2018-08-31 17:18 | disposition home or self-care (01) ==
LOC: ER 13:19
DX: R00.2 Palpitations (principal); R07.9 Chest pain, unspecified; R06.02 Shortness of breath; E78.00 Pure hypercholesterolemia, unspecified
CPT/HCPCS: 36415; 71046; 80053; 80307; 81001; 82553; 83690; 84703; 85025; 93005; 93010; 99284

== ENCOUNTER 2020-04-15 20:13 | Emergency (ER) | payer MEDICAID ==
--- NOTE | 2020-04-15 21:15 | ER Document Report ---
ED Medical Screen (RME) - General Chief Complaint: Chest Pain Stated Complaint: CHEST PAIN Time Seen by Provider: 04/15/20 21:11 Primary Care Provider: RUPESH RICO MD [Primary Care Provider] - Follow up as needed Notes: Patient presents complaining of right anterior chest wall tenderness that started at 3:00 this morning. Patient states pain woke her up. Patient states pain has been off and on throughout the day and will radiate to the right upper extremity. Patient denies any cough, shortness of breath, nausea or vomiting. Patient denies any lightheadedness or dizziness. Patient denies any significant underlying medical history. I have greeted and performed a rapid initial assessment of this patient. A comprehensive ED assessment and evaluation of the patient, analysis of test results and completion of the medical decision making process will be conducted by additional ED providers. TRAVEL OUTSIDE OF THE [place] IN LAST 30 DAYS: No - Related Data Allergies/Adverse Reactions: No Known Allergies Allergy (Verified 08/31/18 13:20) Past Medical History - Social History Family history: DM - Past Medical History Cardiac Medical History: Reports: Hx Hypercholesterolemia Renal/ Medical History: Denies: Hx Peritoneal Dialysis Psychiatric Medical History: Reports: Hx Depression - anxiety Past Surgical History: Reports: Hx Section - x 1 - Immunizations Immunizations up to date: Yes Hx Diphtheria, Pertussis, Tetanus Vaccination: Yes Physical Exam - Vital signs Vitals: Temp Pulse Resp BP Pulse Ox 98.2 F 89 16 142/86 H 97 04/15/20 20:38 04/15/20 20:38 04/15/20 20:38 04/15/20 20:38 04/15/20 20:38 - Respiratory Respiratory status: No respiratory distress Chest status: Tender - Cardiovascular Rhythm: Regular Heart sounds: S1 appreciated, S2 appreciated Course - Vital Signs Vital signs: Temp Pulse Resp BP Pulse Ox 98.2 F 89 16 142/86 H 97 04/15/20 20:38 04/15/20 20:38 04/15/20 20:38 04/15/20 20:38 04/15/20 20:38 Doctor's Discharge - Discharge Referrals: RUPESH RICO MD [Primary Care Provider] - Follow up as needed
[2020-04-15 21:57] LABS: ABSOLUTE EOSINOPHILS # (AUTO) 0.2 10^3/uL (0.0-0.6); ABSOLUTE LYMPHOCYTES (AUTO) 2.3 10^3/uL (0.5-4.7); ABSOLUTE MONOCYTES (AUTO) 0.4 10^3/uL (0.1-1.4); ABSOLUTE NEUT (AUTO) 5.2 10^3/uL (1.7-8.2); BASOPHILS % (AUTO) 0.6 % (0-2); HEMATOCRIT 38.6 % (36.0-47.0); HEMOGLOBIN 13.5 g/dL (12.0-15.5); LYMPHOCYTES % (AUTO) 28.2 % (13-45); MEAN CORPUSCULAR HEMOGLOBIN 30.4 pg (27.0-33.4); MEAN CORPUSCULAR HGB CONC 34.9 g/dL (32.0-36.0); MEAN CORPUSCULAR VOLUME 87 fl (80-97); MONOCYTES % (AUTO) 5.1 % (3-13); PLATELET COUNT 194 10^3/uL (150-450); RED BLOOD COUNT 4.42 10^6/uL (3.72-5.28); SEGMENTED NEUTROPHILS % (AUTO) 64.1 % (42-78); TOTAL CELLS COUNTED % (AUTO) 100 %; WHITE BLOOD COUNT 8.1 10^3/uL (4.0-10.5)
--- NOTE | 2020-04-15 22:10 | RADIOLOGY REPORT (SQ) ---
EXAM DESCRIPTION: XR CHEST 2 VIEWS COMPLETED DATE/TME: 04/15/2020 21:45 CLINICAL HISTORY: 29 years, Female, cp COMPARISON: None. NUMBER OF VIEWS: TECHNIQUE: LIMITATIONS: None. FINDINGS: No evidence of pulmonary infiltrate or pleural effusion. The heart and mediastinum are unremarkable. Pulmonary vascularity appears normal. There is an S type thoracolumbar scoliosis. IMPRESSION: No acute finding. Scoliosis. copyright 2010 [employer]- All Rights Reserved
[2020-04-15 22:25] LABS: ALBUMIN 4.2 g/dL (3.5-5.0); ALKALINE PHOSPHATASE 58 U/L (38-126); ASPARTATE AMINO TRANSFERASE 38 U/L (14-36); BILIRUBIN,TOTAL 0.9 mg/dL (0.2-1.3); BLOOD UREA NITROGEN 10 mg/dL (7-20); CALCIUM 9.7 mg/dL (8.4-10.2); CARBON DIOXIDE 31 mmol/L (22-30); CHLORIDE 100 mmol/L (98-107); CREATINE KINASE 90 U/L (30-135); GLUCOSE 126 mg/dL (75-110); TOTAL PROTEIN 7.5 g/dL (6.3-8.2)
[2020-04-15 22:30] LABS: ANION GAP 4 (5-19)
[2020-04-16 00:05] VITALS: BP 115/82
--- NOTE | 2020-04-16 11:50 | EKG REPORT ---
SEVERITY:- BORDERLINE ECG - SINUS RHYTHM BORDERLINE T ABNORMALITIES, INFERIOR LEADS : Confirmed by: Jose F Pelayo MD 16-Apr-2020 11:49:47
== END 2020-04-16 01:33 | disposition left against medical advice (07) ==
LOC: ER 20:13
DX: R07.9 Chest pain, unspecified (principal); E78.00 Pure hypercholesterolemia, unspecified
CPT/HCPCS: 36415; 71046; 80053; 82550; 83690; 84484; 84703; 85025; 93005; 93010; 99281